=== PATIENT | male | born 1960 | race Caucasian/White ===

== ENCOUNTER 2019-06-10 10:44 | Emergency (ER) | payer SELFPAY ==
[~2019-06-10] VITALS: Ht 157.5 cm; Wt 59.5 kg
[~2019-06-10 10:44] MED LIST: AMOX1TAB10 PO
[2019-06-10 10:48] VITALS: Ht 157.5 cm; Wt 59.5 kg
[2019-06-10] MEDS ORDERED: LIDOCAINE 1% (MDV) 20 ML INJ SC ONE (12:00)
[2019-06-10] MEDS ORDERED: DIPHTH/TET/ACEL PERTUSS (ADULT) 0.5 ML VIAL IM* ONE (12:00)
[2019-06-10] MEDS ORDERED: FENTAnyl 50 MCG/ML VIAL IV ONE (12:00)
[2019-06-10] MEDS ORDERED: BACITRACIN/POLYMYXIN 28.35 GM OINT TOP ONE (13:30)
[2019-06-10 14:31] VITALS: BP 136/88; PULSE 68; RESP 16
== END 2019-06-10 14:33 | disposition home or self-care (01) ==
LOC: E/R 10:44
DX: S60.352A Superficial foreign body of left thumb, initial encounter (principal); W29.4XXA Contact with nail gun, initial encounter; Y92.9 Unspecified place or not applicable; Z23 Encounter for immunization; Z87.891 Personal history of nicotine dependence
CPT/HCPCS: 10120; 73130; 90471; 90715; 96374; 99284; J3010